=== PATIENT | female | born 1960 ===

== ENCOUNTER 2017-08-11 12:40 | Emergency (ER) | payer MEDICAID ==
[2017-08-11 13:02] VITALS: BP 133/78; PULSE 98; RESP 20; O2SAT 100
--- NOTE | 2017-08-11 13:33 | PCM.RRT ---
AUTO MECHANIC APPRENTICE Nurses Assessment - Situation Date: 08/11/17 Time AUTO MECHANIC APPRENTICE was called: 12:10 AUTO MECHANIC APPRENTICE Responder Arrival Time:: 12:12 AUTO MECHANIC APPRENTICE Location:: Logistics Research Engineer AUTO MECHANIC APPRENTICE Reason for Call: Change in Mental Status (near syncope) AUTO MECHANIC APPRENTICE Called By: RN - IV IV Inserted during AUTO MECHANIC APPRENTICE?: No - Respiratory AUTO MECHANIC APPRENTICE Delivery Method: Room Air Received Nebulizer Treatments: No Was the Patient Ventilated with Bag/Mask 100% O2?: No Secretions Suctioned?: No Was the Patient Intubated?: No Was the Patient Placed on a Ventilator?: No - Medication Medications Administered During AUTO MECHANIC APPRENTICE: N/A - Diagnostic Test Ordered EKG: No Chest X-Ray: No CT Scan: No CPR started during AUTO MECHANIC APPRENTICE?: No - Vital Signs Vital Signs: Pulse 103, BP 153/89, RR: 18 - Recommendations 5) AUTO MECHANIC APPRENTICE Level of Care Recommendations: Transport to the ED Notifications: Attending Physician, Family or Designated Caregiver I.Reason for AUTO MECHANIC APPRENTICE - A) Acute Change in Patient: (Select all that apply): Staff member or family is worried about patient Subjective: Rapid response was called overhead at 12:10pm to Logistics Research Engineer on a 56 year old female for a near syncope episode. Patient is the spouse of a patient whom is scheduled for a cardiac cath today. Patient has past medical history of type 2 diabetes. Patient states she suddenly felt dizzy and fatigue and needed to sit down. Patient sat herself down on a chair near by. Per staff, patient did not suffer any trauma or loss of consciousness. Patient admits to feeling fatigue and would like to be evaluated at the emergency department. Patient further denies fever, chills, headache, shortness of breath, chest pain, nausea , vomiting, urinary or fecal incontinence. - Neurological Status (Select all that apply): Alert, Responsive, Oriented, Verbal, Follows Commands - Respiratory Oxygen Delivery Method: Room Air - Constitutional Appears: Well, Non-toxic, Younger Than Stated Age - Head Head Exam: ATRAUMATIC, NORMOCEPHALIC - Eyes Eye Exam: EOMI, Normal appearance - Respiratory Exam Respiratory Exam: Clear to Ausculation Bilateral, NORMAL BREATHING PATTERN. absent: Respiratory Distress - Cardiovascular Exam Cardiovascular Exam: REGULAR RHYTHM, +S1, +S2 - GI/Abdominal Exam GI & Abdominal Exam: Soft, Normal Bowel Sounds - Neurological Exam Neurological Exam: Alert, Awake, Oriented x3 - Extremities Exam Extremities Exam: Full ROM, Normal Inspection Plan - Assessment of Findings&Treatment Plan Pre-syncope episode -Vasovagal vs hypoglycemia -Vitals stable -FS glucose during AUTO MECHANIC APPRENTICE was 163 -Patient was transported to ED for further evaluation -Case was endorsed to Dr. Whiting in the ED at 12:31PM
[2017-08-11] MEDS ORDERED: Sodium Chloride 0.9% 1,000 ML IV ONE (14:13)
[2017-08-11 14:45] LABS: BASO % 0.3 % (0.0-2.0); EOS % 0.2 % (0.0-4.0); HEMATOCRIT 38.7 % (34.0-47.0); LYMPH # 1.1 K/uL (1.0-4.3); LYMPH % 9.3 % (20.0-40.0); MEAN CELL VOLUME 87.5 fL (81.0-99.0); MEAN CORPUSCULAR HEMOGLOBIN 29.7 pg (27.0-31.0); MEAN CORPUSCULAR HGB CONC 33.9 g/dL (33.0-37.0); MEAN PLATELET VOLUME 9.1 fL (7.2-11.7); MONO # 0.6 K/uL (0.0-0.8); MONO % 5.5 % (0.0-10.0); PLATELET COUNT 244 K/uL (130-400); RED CELL DISTRIBUTION WIDTH 12.8 % (11.5-14.5); WHITE BLOOD COUNT 11.3 K/uL (4.8-10.8)
[2017-08-11 14:57] LABS: ALB/GLOB RATIO 1.4 (1.0-2.1); ALKALINE PHOSPHATASE 74 U/L (38-126); ALT/SGPT 48 U/L (9-52); AST/SGOT 41 U/L (14-36); BILIRUBIN,TOTAL 0.8 mg/dL (0.2-1.3); BLOOD UREA NITROGEN 10 mg/dL (7-17); CALCIUM 9.1 mg/dl (8.6-10.4); CARBON DIOXIDE 28 mmol/L (22-30); CHLORIDE 97 mmol/L (98-107); GFR AFRICAN-AMERICAN > 60; GLUCOSE,RANDOM 156 mg/dL (65-105); SODIUM 136 mmol/L (132-148)
[2017-08-11 14:59] VITALS: TEMP 99.7
--- NOTE | 2017-08-11 15:19 | RAD ---
PROCEDURE: CHEST RADIOGRAPH, 1 VIEW HISTORY: Chest pain COMPARISON: None available. FINDINGS: LUNGS: The lungs are clear. PLEURA: No pneumothorax or pleural fluid seen. CARDIOVASCULAR: Normal. OSSEOUS STRUCTURES: No significant abnormalities. VISUALIZED UPPER ABDOMEN: Normal. OTHER FINDINGS: None. IMPRESSION: No active pulmonary disease.
[2017-08-11 15:20] LABS: NEUTROPHIL 89 % (50-75); TOTAL CELLS COUNTED 100
--- NOTE | 2017-08-11 15:42 | C.PDOC ---
History Of Present Illness 56yo female, brought to ED for evaluation after an EDUCATIONAL RECRUITER was called because the patient was feeling dizzy while upstairs in the hospital. Patient denies any loss of consciousness, chest pain or shortness of breath. Patient reports she did not eat breakfast today. She denies any fevers as well. She has no other medical complaints. Time Seen by Provider: 08/11/17 14:12 Chief Complaint (Nursing): Syncope History Per: Patient History/Exam Limitations: no limitations Onset/Duration Of Symptoms: Mins Current Symptoms Are (Timing): Still Present Past Medical History Reviewed: Historical Data, Nursing Documentation, Vital Signs Vital Signs: Last Vital Signs Temp 99.7 F H 08/11/17 14:58 Pulse 98 H 08/11/17 12:56 Resp 20 08/11/17 12:56 BP 133/78 08/11/17 12:56 Pulse Ox 100 08/11/17 15:43 - Medical History PMH: No Chronic Diseases Surgical History: No Surg Hx - [facility] Procedures INFLUENZA VACCINATION (09/30/13) OP RED-INT FIX TIB/FIBUL (09/30/13) PACKED CELL TRANSFUSION (09/30/13) Family History: States: No Known Family Hx - Social History Hx Alcohol Use: No Hx Substance Use: No Review Of Systems Except As Marked, All Systems Reviewed And Found Negative. Cardiovascular: Negative for: Chest Pain Respiratory: Negative for: Shortness of Breath Neurological: Positive for: Dizziness Physical Exam - Physical Exam Appears: Non-toxic, No Acute Distress Skin: Normal Color, Warm Head: Atraumatic, Normacephalic Eye(s): bilateral: Normal Inspection Nose: Normal Oral Mucosa: Moist Throat: Erythema Neck: Supple Cardiovascular: Rhythm Regular Respiratory: Normal Breath Sounds Gastrointestinal/Abdominal: Soft, No Tenderness Extremity: Normal ROM, No Deformity Neurological/Psych: Oriented x3, Normal Speech, Normal Cognition ED Course And Treatment - Laboratory Results Result Diagrams: 08/11/17 14:40 08/11/17 14:40 ECG Rhythm: Sinus Rhythm Interpretation Of ECG: Normal axis, normal intervals Rate From EC O2 Sat by Pulse Oximetry: 100 (RA) Pulse Ox Interpretation: Normal Progress Note: 1538: Upon re-evaluation, patient rpeorts improvement of symptoms. Stable for discharge home. Disposition - Disposition Referrals: [facility] [Outside] [facility] [Outside] Disposition: HOME/ ROUTINE Disposition Time: 15:15 Condition: IMPROVED Additional Instructions: Thank you for letting us take care of you today. The emergency medical care you received today was directed at your acute symptoms. If you were prescribed any medication, please fill it and take as directed. It may take several days for your symptoms to resolve. Return to the Emergency Department if your symptoms worsen, do not improve, or if you have any other problems. Please contact your doctor or call one of the physicians/clinics you have been referred to that are listed on the Patient Visit Information form that is included in your discharge packet. Bring any paperwork you were given at discharge with you along with any medications you are taking to your follow up visit. Our treatment cannot replace ongoing medical care by a primary care provider (PCP) outside of the emergency department. Thank you for allowing the [facility] team to be part of your care today. Follow up with your doctor or the clinic for re-evaluation in 3-4 days. Prescriptions: Ibuprofen [Motrin] 600 mg PO Q6 PRN #20 tab PRN Reason: Pain, Moderate (4-7) Oseltamivir Phosphate [Tamiflu] 75 mg PO BID #10 capsule Instructions: Viral Syndrome (ED) Forms: [employer] ([place]) - Clinical Impression Clinical Impression: Dizziness, Viral syndrome - Scribe Statement The provider has reviewed the documentation as recorded by the Amy Gupta Provider Attestation: All medical record entries made by the Amy were at my direction and personally dictated by me. I have reviewed the chart and agree that the record accurately reflects my personal performance of the history, physical exam, medical decision making, and the department course for this patient. I have also personally directed, reviewed, and agree with the discharge instructions and disposition.
--- NOTE | 2017-08-12 18:24 | CARD ---
APPROVED REPORT EKG Measurement Heart [id number] <Conclusion> Normal sinus rhythm Nonspecific T wave abnormality Abnormal ECG
== END 2017-08-11 15:48 | disposition home or self-care (01) ==
LOC: C.ER 12:40
DX: B34.9 Viral infection, unspecified (principal); R42 Dizziness and giddiness